=== PATIENT | female | born 1985 | race Caucasian/White ===

== ENCOUNTER → 2018-10-27 16:41 | Outpatient (CLI) | payer OTHER, SELFPAY ==
--- OUTSIDE RECORDS SUMMARY | 2019-01-01 07:57 | XMS RPT_ITS ---
:1985 Author Organization OHIP Care Team Providers Name Role Phone Jeremías Van Attending Unavailable Jeremías Van Referring Unavailable ReidMikie Primary [facility] Unavailable PROBLEMS PROBLEMS No Problem Records FoundPROCEDURES PROCEDURES No Procedure Records FoundRESULTS RESULTS Observed: 10/27/2018 Status: F Source: [place]ONK CULTURE, NOSE 11:45 AM [facility] REPOSITORY Comments: SINUS Gram Stain Gram Stain 2+ Epithelial cells 1+ White Blood Cells Very Rare Gram positive cocci Nasoph. Cult ORGANISM 1: Streptococcus pneumoniae Amount Growth Rare Streptococcus pneumoniae: REACTION Benzylpenicillin NF <=0.06 S Cefotaxime (MENINGITIS) $ <=0.12 S (meningitis)Ceftriaxone $ <=0.12 S Clindamycin $$ <=0.25 S Erythromycin $ <=0.12 S Levofloxacin $ <=0.25 S Moxifloxicin *NF 0.12 S Tetracycline NF <=0.25 S Trimethoprim/Sulfametho $ <=10 S Vancomycin $ 0.5 S (NF) indicates non-formulary drug at [facility]. Approval by Infectious Disease Specialist required before non-formulary drugs may be ordered and/or dispensed. * CLSI guidelines does not recommend testing of cephalosporins. This interpretation is deduced from Beta-lactam/penicillin results. Performed By: #### M100.0900 #### [facility] [address] [place], [address] ALLERGIES ALLERGIES No Allergies Records FoundENCOUNTERS ENCOUNTERS ADMIT/DISCHARGE ACCOUNT ADMITTING ENCOUNTER LOCATION SOURCE NUMBER CLASS 10/27/2018 [id number] Ambulatory Carlos Eduardo Carlos Eduardo 0 [facility] ing:LABSPEC Repository PAYERS PAYERS ENCOUNTER GUARANTOR PAYER SUBSCRIBER SOURCE 10/27/2018 J LUIS Riveraoster [id number] Insurance:BERNARDALTCAREDiogenes ALEXANDEROB: [facility] MIKIE PALMA [facility] Number: [id number] [facility] [address]Gju: [id number] Repository Date:[id number] [address] [address]VA: 10/27/2018 Secondary NOT GIVENUNK Carlos Eduardo Insurance:SELF PAY [facility] Number: Effective Repository Date:2018-10-27
== END ==
PROVIDERS: Family Provider Family Medicine; PCP Family Medicine; Referring Provider Otolaryngology; Visit Provider Otolaryngology
DX: J01.90 Acute sinusitis, unspecified (principal)
CPT/HCPCS: 87070; 87077; 87186; 87205

== ENCOUNTER 2021-10-16 08:00 | Outpatient (RCR) | payer SELFPAY, OTHER ==
--- NOTE | 2021-09-21 08:15 | HP.PTEVAL_ITS ---
Patient's Visit Information JANNA COOPER is a 36 year old F referred to Physical Therapy by ZAYRA Mcdowell with a diagnosis of Left Knee Pain. Date of Evaluation: 09/21/21 Physical Therapist: Sonali Edwards DPT - Visit Plan Frequency: 3x /Week Duration: 4 Weeks Plan: Focus on LE and core strength/stabilization, Patellar tracking- ultrasound as modality of choice. 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 She has pain on the medial joint line and along the patella. No radiating pain- describes the pain as dull and achy but last Tuesday she had a little bit of throbbing and mild bruising. 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 She feels the knee is getting better- not currently officiating- she will go back Sep 29. Worst: 6/10 Agg: activity- walking- has not tried to run- descending stairs. Best: 0/10 Eases: laying down or sitting- getting it in a certain position- knee propped up on a pillow and toes turned outwards. No N/T in the left LE. No back or hip pain. Previous history of knee pain- working out any HEP- squats or lunges really bothered her- does have crunching and grinding. 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 Official for basketball- no other regular exercise- no strength training. Sleep: disturbed- hard to get comfortable-stiff when she wakes up in the AM- back/side/stomach- no pillow under the knee. Does wear orthotics. PMHx: asthma, torn left hamstring in high school, anxiety. Meds: simbicort, escotalopram, singulair, OTC nasal spray for allergies. - Objective Posture: FH, RS- can correct with verbal cues but does not maintain. Gait: no deviation noted. Stairs: asc/desc 8 recip with no HR- good asc but has d ecreased control with descent. HR/TR walk: able without pain. Balance: SLS: 15 sec with mild sway and hip drop, Tandem stance reports discomfort with left LE in front but no LOB. Transfers: sit to stand without UE A. Palpation: mild tender along medial superior patella and medial joint line. ROM: WFL no pain. Strength: Core: fair, Hip:4/5 throughout Knee: 4+/5, Ankle: 5/5. Flex: HS: moderate, Gastroc: moderate - Special Tests L Knee Heena - Meniscus: Negative L Knee Sangita - ACL: Negative L Knee Valgus - MCL: Positive L Knee Varus - LCL: Negative - Balance/Special Test Scores Lower Extremity Functional Score: 51 - Goals Goal 1:: Patient will be I with HEP and progression Goal Time Frame: 4-6 Weeks Goal 2:: Patient will report 95% back to all normal activities and work without pain. Goal Time Frame: 4-6 Weeks Goal 3:: Patient will demo 5/5 strength in LE where deficit Goal Time Frame: 4-6 Weeks Goal 4:: Patient will maintain proper posture t/o tx session to demo increased core s/s Goal Time Frame: 4-6 Weeks - Rehabilitation Potential Physical Therapy Diagnosis: Patient presents with hypomobility- she has decreased LE and core strength/stabilization, flexibility and muscular endurance leading to poor patellar tracking and increased pain with ADL's/recreational activities. Rehabilitation Potential: Good - Anticipated Interventions Patient/Client Instruction: Educate patient on: Benefits of Fitness Program Therapeutic Exercise to Include: Strength training, Endurance training, Balance training, Coordination, Agility training, Body mechanics, Postural training, Flexibilty training, Gait and locomotor training, Neuromotor development, Dynamic Lumbar Stabilization, Scapular Strength/Stabilization For the Purpose of:: To improve muscle performance and motor function TENS: Yes Cryotherapy (ice pack, ice massage): Yes Thermo therapy (hot pack): Yes Ultrasound (thermal/non thermal): Yes Thank you for the opportunity to evaluate your patient. For Medicare and Medicare HMO plans, please review the plan of care and approve it. It will need to be FAXED BACK to us at [phone] for Medicare purposes. For Medicare only, by signing this I certify the plan of care. Please let me know if there are questions or concerns regarding this plan of care. Physician Signature: ____Date:
--- NOTE | 2021-10-16 08:21 | HP.PTREVAL_ITS ---
ZAYRA Mcdowell, It has been my pleasure to treat JANNA COOPER over the last 12 visits for Left Knee Pain. Please see the progress note below for an update on the physical therapy plan of care! Subjective: Patient reports that she feels stronger but the pain is still there. 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 She is waiting approval for MRI. Not limiting her job but def hurts throughout the day. Objective/Function: Posture: FH, RS- can correct with verbal cues but does not maintain. Gait: slightly antalgic. Stairs: asc/desc 8 recip with no HR-good both asc and desc HR/TR walk: able without pain. Balance: SLS: 15 sec with mild sway and hip drop, Transfers: sit to stand without UE A. Palpation: mild tender along medial superior patella and medial joint line. ROM: WFL no pain. Strength: Core: fair, Hip:4+/5 throughout Knee: 5/5, Ankle: 5/5. Flex: HS: moderate, Gastroc: moderate Plan Plan: Pending- will wait for MRI and return to MD for further evaluation. Balance/Gait/Functional tests - Balance/Special Test Scores Lower Extremity Functional Score: 53 Goals Goal 1:: Patient will be I with HEP and progression Goal Time Frame: 4-6 Weeks Goal Progress: Goal Met Goal 2:: Patient will report 95% back to all normal activities and work without pain. Goal Time Frame: 4-6 Weeks Goal Progress: Progressing Goal 3:: Patient will demo 5/5 strength in LE where deficit Goal Time Frame: 4-6 Weeks Goal Progress: Progressing Goal 4:: Patient will maintain proper posture t/o tx session to demo increased core s/s Goal Time Frame: 4-6 Weeks Goal Progress: Progressing Anticipated Interventions Patient/Client Instruction: Educate patient on: Benefits of Fitness Program Therapeutic Exercise to Include: Strength training, Endurance training, Balance training, Coordination, Agility training, Body mechanics, Postural training, Flexibilty training, Gait and locomotor training, Neuromotor development, Dynamic Lumbar Stabilization, Scapular Strength/Stabilization For the Purpose of:: To improve muscle performance and motor function TENS: Yes Cryotherapy (ice pack, ice massage): Yes Thermo therapy (hot pack): Yes Ultrasound (thermal/non thermal): Yes Please do not hesitate to contact me at [phone] by phone or if you have questions or concerns regarding this new plan of care! Sincerely, DOUG NegreteT
--- NOTE | 2022-02-17 07:42 | HP.PT.NRP ---
JANNA COOPER was seen in my office for initial evaluation on 09/21/21. The following Plan of Care was established for this patient: Initial Frequency: 3x /Week Initial Duration: 4 Weeks Patient/Client Instruction: Educate patient on: Benefits of Fitness Program Therapeutic Exercise to Include: Strength training, Endurance training, Balance training, Coordination, Agility training, Body mechanics, Postural training, Flexibilty training, Gait and locomotor training, Neuromotor development, Dynamic Lumbar Stabilization, Scapular Strength/Stabilization For the Purpose of:: To improve muscle performance and motor function TENS: Yes Cryotherapy (ice pack, ice massage): Yes Thermo therapy (hot pack): Yes Ultrasound (thermal/non thermal): Yes This patient was last seen in our office . Pertinent comments regarding their Physical therapy will appear below: Patient has not attended PT in over 30 days, appropriate to be d/c from PT and return to MD for further evaluation. At this point I will be discontinuing this patient from physical therapy. I would be happy to see this patient again in the future if found appropriate by the physician. Thank you! Sonali Edwards DPT Balance/Gait/Functional tests - Balance/Special Test Scores Lower Extremity Functional Score: 53
== END 2021-10-16 19:00 | disposition home or self-care (01) ==
LOC: PT 08:00
PROVIDERS: PCP Family Medicine
DX: M76.52 Patellar tendinitis, left knee (principal)
CPT/HCPCS: 97014; 97035; 97110; 97161; 97164; 97530; G0283

== ENCOUNTER 2021-10-28 15:32 | Outpatient (CLI) | payer OTHER, SELFPAY ==
--- NOTE | 2021-10-28 15:35 | MRI_ITS ---
STUDY: MRI LEFT KNEE REASON FOR EXAM: Female, 36 years old. LEFT MEDIAL KNEE PAIN TECHNIQUE: Standardized fat and water weighted pulse sequences were obtained in all 3 orthogonal planes. COMPARISON: Left knee x-ray dated September FINDINGS: A small free edge radial tear of the body of the medial meniscus is present. Normal remaining aspects of the medial meniscus. Normal hyaline cartilage of the medial femorotibial compartment. Normal medial femoral condyle and tibial plateau. Normal medial collateral ligamentous complex (MCL). Normal distal semimembranosus, gracilis and semitendinosus tendons. Normal lateral meniscus. Normal hyaline cartilage of the lateral femorotibial compartment. Normal lateral femoral condyle and tibial plateau. Normal proximal tibiofibular articulation. Normal lateral collateral (fibular) ligament. Normal popliteus tendon. Normal biceps femoris tendon. Normal anterior cruciate ligament (ACL). Normal posterior cruciate ligament (PCL). Normal congruent patellofemoral articulation. Normal hyaline cartilage of the patellofemoral compartment. Normal medial and lateral patellar retinaculum. Normal quadriceps tendon. Normal patellar tendon. Normal Hoffa''s fat pad. There is no joint effusion. No marrow edema or osteochondral defect or occult fracture is seen. The soft tissues are unremarkable. The otherwise visualized osseous structures are unremarkable. MRI/Lower Ext Joint Only (Routine) IMPRESSION: 1. Small radial tear of the body of the medial meniscus 2. No marrow edema or osteochondral defect or occult fracture is seen. Electronically Signed: Diaz Herzog MD at 17:22 EST , Service support ,
== END 2021-10-28 23:59 | disposition short-term general hospital (02) ==
PROVIDERS: PCP Family Medicine
DX: M23.92 Unspecified internal derangement of left knee (principal)
CPT/HCPCS: 73721

== ENCOUNTER 2021-11-10 09:46 | Day surgery (SDC) | payer OTHER, SELFPAY ==
--- NOTE | 2021-11-05 10:01 | NURSING ---
Pt refusing urine test DOS, states she is a virgin. Pt educated on reason for test and right to refuse. Pt verbalizing understanding.
[2021-11-10 10:10] VITALS: BP 135/98; PULSE 111; RESP 16; TEMP 36.7; O2SAT 100; BMI 30.8
[2021-11-10] MEDS: Lactated Ringers 1,000 ML 15 ML IV (10:16)
--- NOTE | 2021-11-10 11:08 | HP.PCM_ITS ---
History and Physical Date of Admission: 11/10/21 Date of Service: 10/30/21 MR#:[id number]:[id number]: JANNA COOPER [facility] #:[id number]:1985 Provider:Dr. Brandon Daly DOAge/Sex: 36/F Location:[facility]:Signed Intake Intake Visit Reasons: LEFT KNEE Allergies cefaclor [From Ceclor] Allergy (Severe, Verified 10/30/21 08:40) rash Medications budesonide-formoterol HFA 160 mcg-4.5 mcg/actuation aerosol inhaler gm INHALATION 09/17/21 [History Confirmed 10/30/21] escitalopram oxalate 20 mg tablet tablet PO 09/17/21 [History Confirmed 10/30/21] montelukast 10 mg tablet tablet PO 09/17/21 [History Confirmed 10/30/21] methylphenidate HCl 20 mg tablet,extended release tablet PO 10/30/21 [History Confirmed 10/30/21] PFSH Medical History Anxiety Asthma Hx of compression fracture of spine HPI LEFT KNEE Details: Parts of this documentation were recorded by a scribe, this documentation accurately reflects the service provided and the decisions made by me, Dr. Brandon Daly, 10/30/21 0827. JANNA COOPRE is a 36 year old F here today for follow-up on left knee MRI previously seen by Che gresham new patient to me to recall from notes and had a twisting injury to her knee on 09/11/2021 she did perform physical therapy she has had painful snapping events in the knee. History of hamstring tear as a child but no other noted injuries or surgeries on the knee. Complaints of instability and pain. Pt denies any changes since MRI was completed. 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 Pt denies specific event while officiating a game stating her knee started hurting after the game and progressively worsened following the game. A few episodes of pain popping since episode. Pt denies Ortho Exam General General: Yes no acute distress and Yes well groomed Neurologic: Yes alert and Yes oriented x3 Psychologic: Yes reasonable and appropriate Right Knee Patella Translation: 1 Left Knee Skin/Wound: No ecchymosis, No erythema and No swelling Homans Sign: No Knee ROM: Yes ROM-Extension -20 to 0 and Yes ROM-Flexion 0-140 Examination: Yes med jt line tenderness, No Lat jt line tenderness, Yes Crepitus, Yes Heena's Test, Yes Hong's, No TTP Patellar tendon and No Illiotibial band tenderness Stability: NML: Anterior Drawer, NML: Posterior Drawer, NML: Valgus 0, NML: Valgus 30, NML: Varus 0 and NML: Varus 30 Apprehension with Lateral Translation: No Patella Translation: 1 Patellar Tilt Normal: No Patella Grind: No KNEE: painful medial Helena without click negative lateral Helena Supplemental Info 10/28/2021 MRI left knee: Small free edge tear radial body of medial meniscus 09/16/2021 x-ray left knee: She has lateral patellar tracking and lateral patellar tilt preserved joint space no acute findings Coding Level of Care Code Off vis,est,level 3 Diagnoses Tear of medial meniscus of left knee S83.242A Assessment and Plan Assessment and Plan (1) Tear of medial meniscus of left knee: Status: Acute Plan - Dr. Brandon Daly, DO: MRI review reviewed with and today. Based on her mechanical knee complaints physical exam and MRI demonstrating a small medial meniscus tear of the body that is radial we discussed surgical versus nonsurgical intervention. She has already failed physical therapy and anti-inflammatories. We discussed partial meniscectomy versus meniscal repair if amenable. She does wish to proceed with arthroscopic surgery risk benefits alternatives surgery reviewed including risk of bleeding infection nerve artery tissue damage need for further surgery continued pain postoperative stiffness and expected postoperative course particularly if a repair is performed. In addition to post meniscectomy pain. She did mention that she does have a vocal cord nodule we did discuss this with Dr. Mckeon plans to proceed with LMA and no further work-up is necessary. We will schedule tentative date for November 10, 2021 Follow up 2 weeks postop or sooner if pain, swelling, numbness, or associating symptoms develop. All questions answered patient in agreement of plan. 10/30/21 7034<Electronically signed by Brandon Daly DO>Date Brandon Morris Signature:Date (if applicable) CC: ~ I have re-examined the patient. There are no clinical changes since date of exam
[2021-11-10] MEDS: Lidocaine 1%/Epi 1:200 (30ml) 30 ML AMPUL (11:48)
[2021-11-10] MEDS: Epinephrine (1 mg/ml) 1 MG/ML VIAL (11:50)
--- NOTE | 2021-11-10 12:09 | OP.PCM_ITS ---
Report of Operation Date of Procedure: 11/10/21 Description of Surgical Findings:: Preop diagnosis: Left knee radial tear body medial meniscus Postoperative diagnosis: Same plus small grade 3 chondral flap lateral tibial plateau Procedure: Left knee arthroscopic partial medial meniscectomy and chondroplasty of lateral tibial plateau Anesthesia: General Estimated blood loss: 5 mL Tourniquet time: 25 minutes 300 mmHg Complications: none Indication for procedure: 36-year-old female with mechanical knee symptoms failed conservative treatment the patient did wish to proceed with an elective arthroscopic surgery to attempt to alleviate the symptoms. Risk benefits and alternatives of the procedure were reviewed including risk of bleeding infection nerve artery tissue damage need for further surgery continued pain and expected postoperative course. Procedure: The patient was met in the preoperative holding area. The operative extremity was identified by both patient and physician and family and marked. Patient was brought back to the operating room on a wheeled cart and transferred to the operating table in the supine position. Anesthesia was started. A well- padded tourniquet was placed on the operative extremity. A lower extremity leg gamboa was secured to the operative extremity. The contralateral extremity was well-padded and the end of the bed was flexed to 90 degrees. The patient was prepped and draped in the usual sterile fashion. A timeout was called to ensure the proper patient, procedure, and extremity were being contemplated. 0.5% Marcaine with epinephrine was injected into the planned incisional areas under the skin only. An Esmarch was used to exsanguinate the extremity and the tourniquet was inflated. An 11 blade scalpel was used to make a stab incision in the anterior lateral portal. The arthroscope was inserted into the intercondylar notch and inflow and outflow tubes were attached. Arthroscopic visualization began. The medial compartment was entered. An 18-gauge spinal needle was used to establish the placement for anterior medial portal. An 11 b lade scalpel was used to make a stab incision. Blunt probe was inserted followed by a meniscal probe. A radial type tear of the body of the medial meniscus that was flipped underneath with use of a probe it was brought back into the joint and abraded with a shaver and biting instruments it was not felt to be amenable to repair a partial medial meniscectomy was performed the ACL was found to be intact. The lateral compartment was entered there was no meniscal pathology however there was a small grade 3 chondral flap the lateral tibial plateau which was debrided with a shaver The arthroscope was switched to the medial portal to complete the procedure. The medial and lateral gutters were inspected and were free of loose bodies. The patellofemoral joint was inspected and was free of cartilage pathology. There was good patellar tracking. The knee was thoroughly irrigated and drained. An intra-articular injection with 5 cc 0.5% Marcaine plain and 40 mg of Depo-Medrol was injected intra-articularly. The arthroscope was removed the portals were closed with 3-0 nylon arthroscopic stitches. Followed by Xeroform 4 x 4's ABDs web roll and an Don wrap. The tourniquet was let down and the drapes were removed. All counts were correct. The patient was brought back to the PACU in stable condition.
[2021-11-10] MEDS: MethylPREDNISolone Acetate 40 MG/ML Vial IM (12:10)
[2021-11-10] MEDS: Bupivacaine 0.5% PF 10 ML VIAL (12:11)
--- NOTE | 2021-11-10 12:13 | DCINST_ITS ---
Discharge Instructions Diet Discharge Diet: No restrictions Activity Keep extremity elevated above heart level: Operative Extremity Dressing / Incision Additional Dressing/Incision Instructions:: Ice and elevate next 72 hours .keep dressing on clean and dry for 48 hours then may remove begin showering daily but do not submerge in tub or pool. After shower may apply Band-Aids . Encourage knee range of motion weightbearing as tolerated, use crutches until confident in knee then may discontinue. No strenuous activity. When not ambulating keep iced and elevated next 72 hours. Do not mix pain medication with recreational drugs or alcohol only take as prescribed can be addictive and abusive, call with any questions or concerns. Follow Up Care Please Follow Up With: Brandon Daly DO When: 2 weeks Test Results: Test results from this visit will be discussed in further detail at your follow-up appointment, if applicable. Discharge Plan Admission Attending Provider: Brandon Daly Primary Care Provider: Rod Kerr Discharge Orders/Prescriptions Prescriptions: New oxycodone 5 mg tablet 5 - 10 mg PO Q4H PRN (Reason: pain) 4 Days Qty: 20 RF: 0 No Action budesonide-formoterol [Symbicort] 160-4.5 mcg/actuation HFA aerosol inhaler 1 puff inhalation BID RF: 0 escitalopram oxalate [Lexapro] 20 mg tablet 1 tablet PO DAILY RF: 0 montelukast [Singulair] 10 mg tablet 1 tablet PO DAILY RF: 0 methylphenidate HCl [Metadate ER] 20 mg tablet extended release 1 tablet PO DAILY RF: 0 pseudoephedrine HCl [Sudafed] 30 mg Tablet 30 mg PO Q6H PRN (Reason: Nasal Congestion) RF: 0 fluticasone propionate [Flonase] 50 mcg/actuation Carmen,Suspension 1 spray INTRANASAL DAILY RF: 0 Referrals / Follow Up: Rod Kerr MD [Primary Care Provider] - Disposition Disposition (needs filled in before D/C Order can be placed): Home, Self Care
[2021-11-10 12:22] VITALS: BP 125/90; BP 135/98; PULSE 96; RESP 16; TEMP 36.3; O2SAT 94
[2021-11-10 12:31] VITALS: BP 120/91; BP 135/98; PULSE 97; RESP 16; O2SAT 95
[2021-11-10 12:45] VITALS: BP 122/94; BP 135/98; PULSE 92; RESP 16; O2SAT 94
[2021-11-10 12:53] VITALS: BP 122/87; BP 135/98; PULSE 87; RESP 16; TEMP 36.3; O2SAT 94
[2021-11-10] MEDS: oxyCODONE 5 MG Tablet PO (14:35)
[2021-11-10 14:42] VITALS: BP 121/85; BP 135/98; PULSE 75; RESP 16; TEMP 36.2; O2SAT 99
== END 2021-11-10 23:59 | disposition home or self-care (01) ==
LOC: SDC 09:50 → AC 09:50
PROVIDERS: PCP Family Medicine; Referring Provider Orthopaedic Surgery; Visit Provider Orthopaedic Surgery
PROC: (CPT 29870; principal; 2021-11-10 11:00)
DX: S83.242A Other tear of medial meniscus, current injury, left knee, initial encounter (principal); X50.1XXA Overexertion from prolonged static or awkward postures, initial encounter; Y93.89 Activity, other specified; Y99.9 Unspecified external cause status; Y92.9 Unspecified place or not applicable; F90.9 Attention-deficit hyperactivity disorder, unspecified type; F41.9 Anxiety disorder, unspecified; J45.909 Unspecified asthma, uncomplicated; J38.3 Other diseases of vocal cords; Z79.899 Other long term (current) drug therapy; Z79.51 Long term (current) use of inhaled steroids
CPT/HCPCS: 29881; J7120; J2405

== ENCOUNTER → 2022-09-03 | Outpatient (CLI) | payer OTHER, SELFPAY ==
[2022-09-03 10:12] LABS: Anion Gap 8 (5-15); BUN 19 mg/dL (7-18); BUN/Creat Ratio 19.7 RATIO (10-20); Calcium,Total 8.7 mg/dL (8.5-10.1); Chloride 105 mmol/L (98-107); Cholesterol 206 mg/dL (200); Creatinine, Serum 0.97 mg/dL (0.55-1.02); EST Glomerular Filtration Rate 69 mL/min (>60); Est Glom Filt Rate - Afr Amer 83 mL/min (>60); Glucose 114 mg/dL (74-106); High Density Lipoprotein 58 mg/dL; Potassium 3.8 mmol/L (3.5-5.1); Sodium Level 138 mmol/L (136-145); Thyroid Stim Hormone (TSH) 1.18 uIU/mL (0.358-3.74); Triglycerides 101 mg/dL; Very Low Density Lipoprotein 20 mg/dL (5-40)
== END | disposition home or self-care (01) ==
LOC: MTLAB 08:21
PROVIDERS: PCP Family Medicine; Referring Provider Family Medicine; Visit Provider Family Medicine
DX: Z00.00 Encounter for general adult medical examination without abnormal findings (principal); R00.0 Tachycardia, unspecified
CPT/HCPCS: 36415; 80048; 80061; 84443

== ENCOUNTER → 2024-10-22 | Outpatient (CLI) | payer BC, SELFPAY ==
[2024-10-22 10:28] LABS: Absolute Lymphocyte Count 1.35 X10^3/uL (0.83-4.51); Absolute Neutrophil Count 3.7 X10^3/uL (2.0-7.7); Basophil# 0.02 X10^3/uL; Basophil% 0.4 % (0-1); Eosinophil# 0.06 X10^3/uL; Eosinophils% 1.1 % (0-5); Hematocrit 40.6 % (37-47); Lymphocyte # 1.35 X10^3/ul (0.83-4.51); Lymphocyte % 24.9 % (19-41); Mean Corpuscular Hgb 29.2 pg (27.0-32.0); Mean Corpuscular Volume 91.2 fL (81-99); Mean Platelet Vol. 9.2 fl (6.2-12.0); Monocyte# 0.32 X10^3/uL; Monocyte% 5.9 % (0-10); NRBC Flagged by Analyzer 0 % (0-5); Neutrophil # 3.65 X10^3/uL (2.7-7.7); Neutrophil % 67.3 % (47-70); Platelet Count 250 K/mm3 (150-450); RBC Distribution Width CV 13.3 % (11.6-14.6); RBC Distribution Width SD 44.5 fl (35.1-43.9); Red Blood Count 4.45 M/mm3 (4.2-5.4); White Blood Count 5.4 K/mm3 (4.4-11.0)
[2024-10-22 11:13] LABS: ALB/GLOB Ratio 1.2 RATIO (0.9-2.4); AST(SGOT) 37 U/L (15-37); Alanine Aminotransfer ALT/SGPT 28 U/L (13-56); Albumin, Serum 3.7 g/dL (3.2-5.0); Alkaline Phosphatase 76 U/L (45-117); Anion Gap 5 (5-15); BUN 18 mg/dL (7-18); Calcium,Total 8.6 mg/dL (8.5-10.1); Chloride 108 mmol/L (98-107); Cholesterol 208 mg/dL (200); Creatinine, Serum 0.86 mg/dL (0.55-1.02); EST Glomerular Filtration Rate 78 mL/min (>60); Est Glom Filt Rate - Afr Amer 94 mL/min (>60); Globulin 3.2 g/dL (2.2-4.2); Glucose 110 mg/dL (74-106); High Density Lipoprotein 57 mg/dL; Potassium 3.7 mmol/L (3.5-5.1); Protein, Total 6.9 g/dL (6.4-8.2); Sodium Level 138 mmol/L (136-145); Triglycerides 95 mg/dL; Very Low Density Lipoprotein 19 mg/dL (5-40)
== END | disposition home or self-care (01) ==
LOC: MFPLAB 09:11
PROVIDERS: PCP Family Medicine; Referring Provider Family Medicine; Visit Provider Family Medicine
DX: Z00.00 Encounter for general adult medical examination without abnormal findings (principal); R00.0 Tachycardia, unspecified
CPT/HCPCS: 36415; 80053; 80061; 84443; 85025